=== PATIENT | female | born 1955 | race Caucasian/White ===

== ENCOUNTER 2017-12-28 13:20 | Emergency (ER) | payer OTHER, MEDICARE ==
[~2017-12-28] VITALS: Ht 152.4 cm; Wt 60.0 kg
[~2017-12-28 13:20] MED LIST: ASPIRIN LOW DOS81 M2 PO; CLONIDINE0.1 MG PO; COZAAR50 MG PO; ELAVIL25 MG PO; FASLODEX250 M1 IM; GLUCOPHAGE500 MG PO; HYDROCHLORO25 MG/TAB PO; LIDOCAINE51 TD; LIPITOR10 MG PO; MECLIZINE HCL25 MG PO; NASONEX50 MCG/ACT NAB; PRILOSEC20 MG/CAP PO; PROAIR HFA IN; VEGETABLE LAXATIVE PO; VICOPROFEN PO; VITAMIN D31000 UNI1 PO; ZOLPIDEM10 MG PO
[2017-12-28] MEDS ORDERED: VEGETABLE LAXATIVE PO (14:18)
[2017-12-28] MEDS ORDERED: VICODIN ES1 TA1 PO (14:20)
[2017-12-28] MEDS ORDERED: OYSTER PO (14:21)
[2017-12-28] MEDS ORDERED: INVOKANA300 MG PO (14:24)
[2017-12-28] MEDS ORDERED: K-DUR/KLOR-CON20 MEQ PO (14:29)
[2017-12-28] MEDS ORDERED: CLONIDINE0.3 MG PO (14:30)
[2017-12-28] MEDS ORDERED: VITAMIN E400 UNIT PO (14:33)
[2017-12-28] MEDS ORDERED: [UNRECOGNIZED DRUG - OTHER] PO (14:34)
[2017-12-28 15:06] VITALS: BP 136/81
== END 2017-12-28 15:06 | disposition home or self-care (01) | DRG 90 ==
LOC: ED 13:20
DX: S06.0X0A Concussion without loss of consciousness, initial encounter (principal); S00.83XA Contusion of other part of head, initial encounter; S80.212A Abrasion, left knee, initial encounter; S50.312A Abrasion of left elbow, initial encounter; E11.9 Type 2 diabetes mellitus without complications; I10 Essential (primary) hypertension; W01.0XXA Fall on same level from slipping, tripping and stumbling without subsequent striking against object, initial encounter; Y92.009 Unspecified place in unspecified non-institutional (private) residence as the place of occurrence of the external cause

== ENCOUNTER 2022-03-20 11:42 | Emergency (ER) | payer OTHER, MEDICARE ==
[~2022-03-20] VITALS: Ht 152.4 cm; Wt 72.0 kg
[~2022-03-20 11:42] MED LIST changes: +CLONIDINE0.3 MG PO; +INVOKANA300 MG PO; +K-DUR/KLOR-CON20 MEQ PO; +OYSTER PO; +VICODIN ES1 TA1 PO; +VITAMIN E400 UNIT PO; +[UNRECOGNIZED DRUG - OTHER] PO
[2022-03-20] MEDS ORDERED: NEURONTIN100 MG PO (12:52)
[2022-03-20] MEDS ORDERED: GABAPENTIN100 MG PO (12:53)
[2022-03-20 14:19] VITALS: BP 109/73
== END 2022-03-20 14:33 | disposition home or self-care (01) | DRG 605 ==
LOC: ED 11:42
DX: S00.93XA Contusion of unspecified part of head, initial encounter (principal); M54.2 Cervicalgia; M25.511 Pain in right shoulder; W01.198A Fall on same level from slipping, tripping and stumbling with subsequent striking against other object, initial encounter

== ENCOUNTER 2022-12-18 14:53 | Emergency (ER) | payer OTHER, MEDICARE ==
[2022-12-18] VITALS (13 sets, daily range): BP systolic 121–168; BP diastolic 43–75
[~2022-12-18] VITALS: Ht 152.4 cm; Wt 63.5 kg
[~2022-12-18 14:53] MED LIST changes: +GABAPENTIN100 MG PO; +NEURONTIN100 MG PO
[2022-12-18 15:39] LABS: BASO% 0.5 % (0-3); EOS% 4.3 % (0-8); HEMATOCRIT 36.9 % (37.0-47.0); HEMOGLOBIN 12.4 g/dl (12.0-16.0); IMMATURE GRANULOCYTES 0.3 % (0.0-5.0); LYMPH% 24.7 % (15-41); MEAN CELL VOLUME 98.9 fL CALC (80.0-100.0); MEAN CORPUSCULAR HGB 33.2 pG CALC (26.0-32.0); MEAN CORPUSCULAR HGB CONC 33.6 g/dL CAL (32.0-36.0); MONO% 9.8 % (2-13); NEUT# 5.73 thou/uL (2.00-7.15); NEUT% 60.4 % (42-76); RED BLOOD COUNT 3.73 mill/uL (4.20-5.60); RED CELL DISTRI WIDTH 12.3 % (11.5-15.5)
[2022-12-18 15:51] LABS: ALBUMIN 4.1 g/dL (3.2-5.0); ALKALINE PHOSPHATASE 54 u/l (38-126); ANION GAP 13 (6-22 (CALC)); BUN 29 mg/dL (8-23); BUN/CREATININE RATIO 20 (12-20 (CALC)); CARBON DIOXIDE 25 mmol/l (22-30); CHLORIDE 104 mmol/l (95-108); CREATININE 1.4 mg/dL (0.5-1.0); GFR FOR AFR.AMER. 45 ML/MIN (>=60 (CALC)); GFR OTHER RACES 37 ML/MIN (>=60 (CALC)); POTASSIUM 3.5 mmol/l (3.5-5.1); SGOT/AST 28 u/l (9-36); SODIUM 138 mmol/l (137-146); TOTAL PROTEIN 7.5 g/dL (6.3-8.2)
[2022-12-18 16:04] LABS: BILIRUBIN, TOTAL 0.7 mg/dL (0.02-1.3)
[2022-12-18 16:33] LABS: URINE BLOOD DIPSTICK Negative (NEGATIVE); URINE GLUCOSE - DIPSTICK Negative (NEGATIVE); URINE KETONE Trace mg/dL (NEGATIVE); URINE LEUK ESTERASE Trace (NEGATIVE); URINE NITRITE - DIPSTICK Negative (Negative); URINE PH 5.5 (4.5-8.0); URINE PROTEIN - DIPSTICK 30 mg/dL (NEG-TRACE); URINE UROBILINOGEN - DIPSTICK 0.2 E.U./dL (0.2)
[2022-12-18 16:35] LABS: URINE COLOR Dark yellow
[2022-12-18 16:41] LABS: URINE SQUAMOUS EPITHELIAL CELL FEW EPI/hpf (0-FEW)
[2022-12-18] MEDS ORDERED: MECLIZINE 2525 MG PO (17:53)
== END 2022-12-18 19:43 | disposition home or self-care (01) | DRG 313 ==
LOC: ED 14:53
PROVIDERS: Family Medicine
DX: R07.9 Chest pain, unspecified (principal); R55 Syncope and collapse; E11.9 Type 2 diabetes mellitus without complications; I10 Essential (primary) hypertension; Z85.3 Personal history of malignant neoplasm of breast; Z53.29 Procedure and treatment not carried out because of patient's decision for other reasons